=== PATIENT | female | born 1940 | race Caucasian/White ===

== ENCOUNTER 2024-01-27 18:46 | Inpatient (IN) | payer MEDICARE ==
[~2024-01-27] VITALS: Ht 154.9 cm; Wt 45.4 kg
[2024-01-27 19:52] LABS: BASOPHILS % (AUTO) 0.4 % (0.0-2.0); EOSINOPHILS # (AUTO) 0.1 K/uL (0.0-0.7); EOSINOPHILS % (AUTO) 1.5 % (0.0-6.0); HEMATOCRIT 27 % (33-45); HEMOGLOBIN 8.8 g/dL (11.5-14.8); LYMPHOCYTES # (AUTO) 3.6 K/uL (0.8-4.8); LYMPHOCYTES % (AUTO) 37.8 % (20.0-44.0); MEAN CORPUSCULAR HEMOGLOBIN 29 PG (26.0-33.0); MEAN CORPUSCULAR HGB CONC 32 g/dl (31.0-36.0); MEAN CORPUSCULAR VOLUME 90 fL (82-100); MONOCYTES # (AUTO) 0.6 K/uL (0.1-1.30); NEUTROPHILS # (AUTO) 5.2 K/uL (1.8-8.9); NEUTROPHILS % (AUTO) 54.3 % (43.0-81.0); PLATELET COUNT (AUTO) 161 K/uL (150-450); RED BLOOD CELL COUNT(AUTO) 3.05 MIL/uL (4.0-5.2); WHITE BLOOD COUNT (AUTO) 9.6 K/uL (4.3-11.0)
[2024-01-27 20:05] LABS: ALANINE AMINOTRANSFERASE 13 U/L (12-78); ALBUMIN 3.4 g/dL (3.4-5.0); ALKALINE PHOSPHATASE 122 U/L (46-116); ASPARTATE AMINOTRANSFERASE 14 U/L (15-37); BILIRUBIN,DIRECT 0.1 mg/dL (0.0-0.2); BILIRUBIN,TOTAL 0.5 mg/dL (0.2-1.0); CALCIUM, SERUM 8.6 mg/dL (8.5-10.1); CARBON DIOXIDE 22 mmol/L (21-32); CHLORIDE 103 mmol/L (98-107); CREATININE 1.4 mg/dL (0.6-1.3); GLUCOSE 120 mg/dL (74-106); POTASSIUM 5.3 mmol/L (3.5-5.1); SODIUM SERUM 134 mmol/L (136-145); TOTAL PROTEIN, SERUM 7.6 g/dL (6.4-8.2); UREA NITROGEN, BLOOD 36 mg/dL (7-18)
[2024-01-27 20:17] LABS: ACETAMINOPHEN <10 ug/ml (10-30); ALCOHOL, BLOOD < 3 mg/dL (0-10); SALICYLATE 1.7 mg/dL (2.8-20.0)
[2024-01-27 20:23] LABS: APPEARANCE,URINE CLEAR (CLEAR); BILIRUBIN,URINE NEGATIVE (NEGATIVE); BLOOD, URINE 1+ Ery/uL (NEGATIVE); COLOR,URINE YELLOW (YELLOW); KETONES,URINE NEGATIVE (NEGATIVE); LEUKOCYTE ESTERASE ,URINE TRACE (NEGATIVE); NITRITE, URINE NEGATIVE (NEGATIVE); PROTEIN,URINE NEGATIVE (NEGATIVE); UGLUCOSE NEGATIVE (NEGATIVE)
[2024-01-27 20:37] LABS: AMPHETAMINE, URINE NEGATIVE (NEGATIVE); BARBITURATE, URINE NEGATIVE (NEGATIVE); BENZODIAZEPINE, URINE NEGATIVE (NEGATIVE); CANNABINOID, URINE NEGATIVE (NEGATIVE); COCCAINE, URINE NEGATIVE (NEGATIVE); OPIATE, URINE NEGATIVE (NEGATIVE); PHENCYCLIDINE SCREEN,URINE NEGATIVE (NEGATIVE)
[2024-01-27 21:29] LABS: ADD URINE CULTURE NO; BACTERIA,URINE 1+ /HPF (None Seen); WBC,URINE 0-2 /HPF (0-3)
[2024-01-27 21:30] LABS: URIC ACID CRYSTALS,URINE Moderate /HPF (None Seen)
[2024-01-27 21:31] LABS: SQUAMOUS EPITHELIAL CELL,UR 0-2 /HPF (None Seen)
[2024-01-27] MEDS ORDERED: DIVA250T PO (21:31)
[2024-01-27] MEDS ORDERED: GABA-532 PO (21:31)
[2024-01-27] MEDS ORDERED: SENN-261 PO (21:31)
[2024-01-27] MEDS ORDERED: MULT-447 PO (21:31)
[2024-01-27] MEDS ORDERED: AMLO5TAB4 PO (21:31)
[2024-01-27] MEDS ORDERED: FERR325T24 PO (21:31)
[2024-01-27] MEDS ORDERED: DOCU-141 PO (21:31)
[2024-01-27] MEDS ORDERED: CLOP75TA15 PO (21:31)
[2024-01-27] MEDS ORDERED: ESCI5TAB PO (21:31)
[2024-01-27] MEDS ORDERED: PANT40TA49 PO (21:31)
[2024-01-27] MEDS ORDERED: ASCO500C18 PO (21:31)
[2024-01-27] MEDS ORDERED: METO25TA3 PO (21:31)
[2024-01-27] MEDS ORDERED: CHOL400T11 PO (21:31)
[2024-01-27] MEDS ORDERED: LEVO25TA7 PO (21:31)
[2024-01-27] MEDS ORDERED: LOSA50TA39 PO (21:31)
[2024-01-27] MEDS ORDERED: TAMS-12 PO (21:31)
[2024-01-27] MEDS ORDERED: RIVA10TA PO (21:31)
[2024-01-27] MEDS ORDERED: MAGNESIUM HYDROXIDE 30 ML UDC PO PRN (22:30)
[2024-01-27] MEDS ORDERED: ACETAMINOPHEN 325 MG TABLET PO PRN (22:30)
[2024-01-27 23:00] VITALS: BP 135/75; TEMP 97.5; O2SAT 99
[2024-01-27] MEDS ORDERED: OLANZAPINE 2.5 MG TABLET PO PRN (23:00)
[2024-01-27] MEDS: BLOOD SUGAR DIAGNOSTIC 1 EACH STRIP IN ONE (23:08)
[2024-01-28] MEDS: SODIUM POLYSTYRENE SULFONATE 15 G/60 ML BOTTLE PO ONE (00:09)
[2024-01-28] MEDS: CEPHALEXIN MONOHYDRATE 250 MG CAPSULE PO SCH (00:10)
[2024-01-28] MEDS: ZOLPIDEM TARTRATE 5 MG TABLET PO PRN (01:59)
[2024-01-28] MEDS ORDERED: NA P133E RC (07:43)
[2024-01-28] MEDS ORDERED: MAGN400O6 PO (07:43)
[2024-01-28] MEDS ORDERED: ACET-868 PO (07:43)
[2024-01-28] MEDS ORDERED: BISA10SU11 RC (07:43)
[2024-01-28 08:00] VITALS: BP 137/81; TEMP 98.1; O2SAT 98
[2024-01-28 08:26] LABS: BILIRUBIN,TOTAL 0.4 mg/dL (0.2-1.0); CALCIUM, SERUM 8.1 mg/dL (8.5-10.1); CREATININE 1.3 mg/dL (0.6-1.3); POTASSIUM 4.1 mmol/L (3.5-5.1); TOTAL PROTEIN, SERUM 6.8 g/dL (6.4-8.2)
[2024-01-28 08:28] LABS: CHOLESTEROL 167 mg/dL (<200); HDL CHOLESTEROL 41 mg/dL (40-60); LDL 88 mg/dL (0-99); TRIGLYCERIDES 134 mg/dL (30-150)
[2024-01-28] MEDS ORDERED: GABAPENTIN 100 MG CAPSULE PO SCH (09:00)
[2024-01-28] MEDS ORDERED: GABAPENTIN 300 MG CAPSULE PO SCH (13:00)
[2024-01-28] MEDS: GABAPENTIN 100 MG CAPSULE PO SCH (13:00)
[2024-01-28 16:00] VITALS: BP 100/61; TEMP 98.1; O2SAT 98
[2024-01-28] MEDS: DOCUSATE SODIUM 100 MG CAPSULE PO SCH (16:33)
[2024-01-28] MEDS: MULTIVIT W/MINERALS 1 TAB TABLET PO SCH (16:33)
[2024-01-28] MEDS: CLOPIDOGREL BISULFATE 75 MG TABLET PO SCH (16:34)
[2024-01-28] MEDS: PANTOPRAZOLE 40 MG TABLET.DR PO SCH (16:34)
[2024-01-28] MEDS: FERROUS SULFATE (325 MG) 325 MG/TAB TABLET PO SCH (16:44)
[2024-01-28] MEDS: TAMSULOSIN 0.4 MG CAP.SR.24H PO SCH (16:46)
[2024-01-28] MEDS: LEVOTHYROXINE SODIUM 25 MCG TABLET PO SCH (16:46)
[2024-01-28] MEDS: ASCORBIC ACID 500 MG TABLET PO SCH (16:47)
[2024-01-28] MEDS: CHOLECALCIFEROL (VITAMIN D 3) 400 UNIT TABLET PO SCH (16:50)
[2024-01-28] MEDS: AMLODIPINE BESYLATE 5 MG TABLET PO SCH (16:51)
[2024-01-28] MEDS: METOPROLOL SUCCINATE 25 MG TAB.SR.24H PO SCH (16:51)
[2024-01-28] MEDS: LOSARTAN POTASSIUM 50 MG TABLET PO SCH (16:51)
[2024-01-28] MEDS: OXCARBAZEPINE 150 MG TABLET PO SCH (17:00)
[2024-01-28 21:17] VITALS: BP 109/69; TEMP 97.7; O2SAT 99
[2024-01-28] MEDS: MIRTAZAPINE 15 MG TABLET PO SCH (22:00)
[2024-01-28] MEDS: SENNOSIDES 8.6 MG TABLET PO SCH (22:01)
[2024-01-29 08:00] VITALS: BP 97/61; TEMP 98.9; O2SAT 96
[2024-01-29 16:00] VITALS: BP 100/60; TEMP 98; O2SAT 98
[2024-01-29] MEDS: ENSURE ENLIVE 237 ML LIQUID (VANILLA) PO SCH (16:38)
[2024-01-29 20:00] VITALS: BP 112/65; TEMP 97.9; O2SAT 100
[2024-01-30 08:00] VITALS: BP 117/60; TEMP 98; O2SAT 98
[2024-01-30] MEDS ORDERED: Z GUARD REMEDY 4 OZ OINT TP PRN (09:00)
[2024-01-30] MEDS: Z GUARD REMEDY 4 OZ OINT TP SCH (09:05)
[2024-01-30 16:00] VITALS: BP 123/64; TEMP 98.2; O2SAT 99
[2024-01-30 20:00] VITALS: BP 115/78; TEMP 98.4; O2SAT 96
[2024-01-31 08:00] VITALS: BP 144/74; TEMP 97.6; O2SAT 95
[2024-01-31] MEDS: OXCARBAZEPINE 150 MG TABLET PO SCH (15:02)
[2024-01-31 16:00] VITALS: BP 120/74; TEMP 98.1; O2SAT 95
[2024-01-31 20:00] VITALS: BP 139/71; TEMP 97.8; O2SAT 97
[2024-02-01 08:00] VITALS: BP 124/70; TEMP 98.1; O2SAT 96
[2024-02-01 16:00] VITALS: BP 111/70; TEMP 97.9; O2SAT 95
[2024-02-01 20:21] VITALS: BP 100/79; TEMP 97.9; O2SAT 95
[2024-02-01] MEDS: QUETIAPINE FUMARATE 25 MG TABLET PO SCH (22:08)
[2024-02-02 08:00] VITALS: BP 128/75; TEMP 97.9; O2SAT 96
[2024-02-02 16:00] VITALS: BP 100/74; TEMP 98.7; O2SAT 97
[2024-02-02 20:57] VITALS: BP 104/57; TEMP 98; O2SAT 95
[2024-02-03 16:00] VITALS: BP 112/65; TEMP 97.9; O2SAT 100
[2024-02-03 20:47] VITALS: BP 126/78; TEMP 97.9; O2SAT 100
[2024-02-04 08:00] VITALS: BP 142/71; TEMP 98.1; O2SAT 97
[2024-02-04 16:00] VITALS: BP 124/63; TEMP 98.7; O2SAT 100
[2024-02-04 20:23] VITALS: BP 105/65; TEMP 97.7; O2SAT 97
[2024-02-04] MEDS: MIRTAZAPINE 15 MG TABLET PO SCH (21:44)
[2024-02-05 08:00] VITALS: BP 124/70; TEMP 97.8; O2SAT 98
[2024-02-05 16:00] VITALS: BP 118/61; TEMP 97.6; O2SAT 98
[2024-02-06 08:00] VITALS: BP 110/58; TEMP 98; O2SAT 95
[2024-02-06 16:00] VITALS: BP 121/63; TEMP 98.6; O2SAT 98
[2024-02-06 20:00] VITALS: BP 124/63; TEMP 98; O2SAT 98
[2024-02-07 08:00] VITALS: BP 147/100; TEMP 97.5; O2SAT 96
[2024-02-07] MEDS: OLANZAPINE 10 MG VIAL IM ONE (13:59)
[2024-02-07 16:03] VITALS: BP 113/93; TEMP 97.6; O2SAT 95
[2024-02-07 21:46] VITALS: BP 104/48; TEMP 97.9; O2SAT 100
[2024-02-07] MEDS: QUETIAPINE FUMARATE 25 MG TABLET PO SCH (21:56)
[2024-02-08 07:39] LABS: BASOPHILS # (AUTO) 0.1 K/uL (0.0-0.2); BASOPHILS % (AUTO) 0.6 % (0.0-2.0); EOSINOPHILS # (AUTO) 0.2 K/uL (0.0-0.7); EOSINOPHILS % (AUTO) 1.6 % (0.0-6.0); HEMATOCRIT 29 % (33-45); HEMOGLOBIN 9.3 g/dL (11.5-14.8); LYMPHOCYTES # (AUTO) 4.9 K/uL (0.8-4.8); LYMPHOCYTES % (AUTO) 50.1 % (20.0-44.0); MEAN CORPUSCULAR HEMOGLOBIN 29 PG (26.0-33.0); MEAN CORPUSCULAR HGB CONC 33 g/dl (31.0-36.0); MEAN CORPUSCULAR VOLUME 88 fL (82-100); MONOCYTES # (AUTO) 0.5 K/uL (0.1-1.30); MONOCYTES % (AUTO) 4.9 % (2.0-12.0); NEUTROPHILS # (AUTO) 4.2 K/uL (1.8-8.9); NEUTROPHILS % (AUTO) 42.8 % (43.0-81.0); PLATELET COUNT (AUTO) 323 K/uL (150-450); RED BLOOD CELL COUNT(AUTO) 3.25 MIL/uL (4.0-5.2); RED CELL DISTRIBUTION WIDTH 15.4 % (11.5-15.0); WHITE BLOOD COUNT (AUTO) 9.7 K/uL (4.3-11.0)
[2024-02-08 08:00] VITALS: BP 135/80; TEMP 97.8; O2SAT 98
[2024-02-08 08:07] LABS: CALCIUM, SERUM 8.6 mg/dL (8.5-10.1); CREATININE 0.8 mg/dL (0.6-1.3); MAGNESIUM 2.1 mg/dL (1.8-2.4); PHOSPHORUS 4.2 mg/dL (2.5-4.9); POTASSIUM 3.9 mmol/L (3.5-5.1)
[2024-02-08] MEDS: QUETIAPINE FUMARATE 25 MG TABLET PO SCH (12:32)
[2024-02-08 16:00] VITALS: BP 109/56; TEMP 98.1; O2SAT 99
[2024-02-08 21:20] VITALS: BP 101/53; TEMP 98.2; O2SAT 98
[2024-02-09 08:00] VITALS: BP 120/55; TEMP 98.7; O2SAT 98
[2024-02-09 16:00] VITALS: BP 105/76; TEMP 97.8; O2SAT 98
[2024-02-09] MEDS: QUETIAPINE FUMARATE 25 MG TABLET PO PRN (16:53)
[2024-02-09 21:00] VITALS: BP 118/68; TEMP 98.6; O2SAT 100
[2024-02-10 08:00] VITALS: BP 112/64; TEMP 97.7; O2SAT 100
[2024-02-10 16:00] VITALS: BP 126/65; TEMP 97.9; O2SAT 96
[2024-02-10 20:20] VITALS: BP 123/63; TEMP 97.9; O2SAT 96
[2024-02-11 08:00] VITALS: BP 124/70; TEMP 98.1; O2SAT 95
[2024-02-11] MEDS: GABAPENTIN 100 MG CAPSULE PO SCH (08:59)
[2024-02-11] MEDS: ONDANSETRON 4 MG TAB.RAPDIS PO PRN (13:20)
[2024-02-11 14:37] LABS: BASOPHILS # (AUTO) 0.1 K/uL (0.0-0.2); BASOPHILS % (AUTO) 0.6 % (0.0-2.0); EOSINOPHILS # (AUTO) 0.1 K/uL (0.0-0.7); EOSINOPHILS % (AUTO) 1.2 % (0.0-6.0); HEMATOCRIT 30 % (33-45); HEMOGLOBIN 9.6 g/dL (11.5-14.8); LYMPHOCYTES # (AUTO) 4.3 K/uL (0.8-4.8); LYMPHOCYTES % (AUTO) 41.3 % (20.0-44.0); MEAN CORPUSCULAR HEMOGLOBIN 28 PG (26.0-33.0); MEAN CORPUSCULAR HGB CONC 32 g/dl (31.0-36.0); MEAN CORPUSCULAR VOLUME 87 fL (82-100); MONOCYTES # (AUTO) 0.3 K/uL (0.1-1.30); MONOCYTES % (AUTO) 3.2 % (2.0-12.0); NEUTROPHILS # (AUTO) 5.6 K/uL (1.8-8.9); NEUTROPHILS % (AUTO) 53.7 % (43.0-81.0); PLATELET COUNT (AUTO) 323 K/uL (150-450); RED BLOOD CELL COUNT(AUTO) 3.38 MIL/uL (4.0-5.2); RED CELL DISTRIBUTION WIDTH 15.4 % (11.5-15.0); WHITE BLOOD COUNT (AUTO) 10.4 K/uL (4.3-11.0)
[2024-02-11 15:03] LABS: CALCIUM, SERUM 8.9 mg/dL (8.5-10.1); CREATININE 0.8 mg/dL (0.6-1.3); POTASSIUM 3.9 mmol/L (3.5-5.1)
[2024-02-11 16:00] VITALS: BP 108/54; TEMP 98.6; O2SAT 97
[2024-02-11 18:48] VITALS: BP 124/81; O2SAT 98
[2024-02-11 20:51] VITALS: BP 110/67; TEMP 98; O2SAT 97
[2024-02-12 08:00] VITALS: BP 113/78; TEMP 98.6; O2SAT 97
[2024-02-12] MEDS: GABAPENTIN 300 MG CAPSULE PO SCH (12:29)
[2024-02-12 16:00] VITALS: BP 127/61; TEMP 98.1; O2SAT 95
[2024-02-12 20:00] VITALS: BP 105/54; TEMP 98.2; O2SAT 99
[2024-02-13 08:00] VITALS: BP 130/69; TEMP 97.6; O2SAT 95
[2024-02-13 16:00] VITALS: BP 98/59; TEMP 98; O2SAT 94
[2024-02-13 20:00] VITALS: BP 133/71; TEMP 98.3; O2SAT 98
[2024-02-14 08:00] VITALS: BP 124/66; TEMP 98.4; O2SAT 98
[2024-02-14] MEDS: MAG HYDROX/AL HYDROX/SIMETH 30 ML UDC PO PRN (11:44)
[2024-02-14] MEDS: QUETIAPINE FUMARATE 25 MG TABLET PO SCH (13:07)
[2024-02-14 16:00] VITALS: BP 131/62; TEMP 97.5; O2SAT 96
[2024-02-14 21:52] VITALS: BP 121/68; TEMP 98; O2SAT 98
[2024-02-15 10:51] VITALS: BP 124/79; TEMP 98.4; O2SAT 90
[2024-02-15 20:00] VITALS: BP 124/65; TEMP 98; O2SAT 100
[2024-02-16 09:29] VITALS: BP 132/84
== END 2024-02-16 13:37 | DRG 885 ==
LOC: ER 18:50 → GPS 21:03
PROVIDERS: ADMIT Psychiatry & Neurology Psychiatry; ATTEND Internal Medicine
DX: F39 Unspecified mood [affective] disorder (principal); N17.0 Acute kidney failure with tubular necrosis; G93.41 Metabolic encephalopathy; E87.1 Hypo-osmolality and hyponatremia; F03.92 Unspecified dementia, unspecified severity, with psychotic disturbance; F03.93 Unspecified dementia, unspecified severity, with mood disturbance; F03.911 Unspecified dementia, unspecified severity, with agitation; G93.49 Other encephalopathy; F29 Unspecified psychosis not due to a substance or known physiological condition; E86.0 Dehydration; Z20.822 Contact with and (suspected) exposure to COVID-19; G62.9 Polyneuropathy, unspecified; Z79.890 Hormone replacement therapy; Z79.01 Long term (current) use of anticoagulants; Z79.02 Long term (current) use of antithrombotics/antiplatelets; Z79.899 Other long term (current) drug therapy; D64.9 Anemia, unspecified; I10 Essential (primary) hypertension; I48.91 Unspecified atrial fibrillation; W18.30XA Fall on same level, unspecified, initial encounter; Y92.9 Unspecified place or not applicable; E87.5 Hyperkalemia; T44.5X5A Adverse effect of predominantly beta-adrenoreceptor agonists, initial encounter
CPT/HCPCS: 36415; 70450-TC; 73030-TC; 80048-TC; 80053-TC; 80061-TC; 80076-TC; 81001; 82962-TC; 83735-TC; 84100-TC; 85025-TC; 87081-TC; 97110-TC; 97116-TC; 97530-TC; G0480; J3490; Q0162